=== PATIENT | female | born 1950 | race Caucasian/White ===

== ENCOUNTER → 2017-04-04 | Day surgery (SDC) | payer MEDICARE ==
[~2017-04-04] MED LIST: ACETAMINOPHEN/HYDROcodone 325 MG/5 MG TAB ONE; BUPIVACAINE/EPINEPHRINE 0.25% PF 30 ML VIAL INFIL ONE; KETOROLAC TROMETHAMINE 30 MG/ML (IVP) VIAL IV PUSH ONE; MEPERIDINE HCL 25 MG/ML VIAL ONE; MIDAZOLAM HCL 2 MG/2 ML VIAL ONE; ONDANSETRON HCL 4 MG/2 ML VIAL IV PUSH ONE; PROPOFOL 100 MG/10 ML INJ IV ONE; ceFAZolin INJ 1,000 MG VIAL ONE
--- NOTE | 2017-04-04 17:05 | TN ---
cc: CHET CARROLL MD DATE OF SURGERY: 04/04/2017 PREOPERATIVE DIAGNOSIS Right knee torn medial meniscus, possible lateral meniscus tear. POSTOPERATIVE DIAGNOSIS Right knee torn medial meniscus, torn lateral meniscus, chondromalacia medial femoral condyle. PROCEDURE Right knee arthroscopy, partial medial and lateral meniscectomy. PROCEDURE IN DETAIL Forceps obtained the patient taken up and placed in supine position on the hip was administered general anesthesia by Dr. Delcid of the Anesthesia Department tourniquet applied to the right thigh and right leg was prepped with Betadine soap followed by Betadine paint. Draping commenced with sterile down sheet sterile U drape, stockinette was applied to foot and calf. This was wrapped with [place] extremity drape was applied. The patient given gram of Ancef prior to initiation operative procedure. A time-out was held and confirmed. At that time the leg was elevated at table was elevated maximum height. The tourniquet inflated to 300 mmHg. The leg was allowed to flex over the side of the operating table. An 80 gauge spinal needle was placed region of the lateral patellar portal. This region. The 4 mL of 0.25% Marcaine with epinephrine. Infiltration also performed in the medial patellar portal and trans patellar tendon portal regions small incision was made region of the trans patellar tendon portal with 11-blade an inflow cannulas placed. The second incision was placed in the region of the medial patellar portal. The arthroscopic cannula was placed. Diagnostic arthroscopy commenced. The medial compartment examined. The anterior and more medial portion of the medial meniscus appeared intact. However as the leg was brought into abduction X rotation against the side post posterior portions of the meniscus were evaluated and a complex degenerative tear was seen posterior horn of the medial meniscus region in zone one a medial portal was established. This area was probed and then debrided with upbiting basket forceps and [place] meniscal shaver as the medial femoral condyle was examined. There was a large approximately quarter-sized area of full-thickness articular cartilage defect or grade 4 chondromalacia. There was some minor changes over the remainder of the medial femoral condyle, however, there was some debridement of the edges of this defect for some loose articular cartilage. At that time the scope was moved over the intercondylar notch edge of the lateral compartment the leg was flexed into figure four position, there was fraying at the free edge of the lateral meniscus seen, which had some complex components. This was debrided with a basket forceps and [place] meniscal shaver. There were all only minor chondromalacia changes noted on the lateral femoral condyle and tibial plateau popliteus tendon appeared normal. Popliteal hiatus was not violated. The undersurface patella was examined with the leg in extension. There were some mild chondromalacia changes as there were the trochlear groove. There were no pathologic plica was identified. Scope was placed back in the intercondylar notch anterior posterior cruciate ligaments were identified. These appeared normal. The scope was placed in the posterior medial and posterolateral compartment no loose bodies of abnormalities were seen in these regions. At that time the knee was thoroughly irrigated and suctioned all cannulas were removed. Each portal was closed with single 4-0 nylon interrupted stitch. Band-Aids, 4x4s, soft roll, Kali wrap were applied to the patient's knee. At that time the tourniquet was deflated. Total tourniquet time was 38 minutes. The patient thought procedure well was then taken to room in stable condition at the completion of procedure. The sponge and needle counts were correct. Estimated blood loss was less than 10 cc total. MD YAIR Shafer/reese /4:10 PM /5:01 PM
== END | disposition home or self-care (01) ==
LOC: ESDC 12:51
PROVIDERS: ATTEND Orthopaedic Surgery
DX: S83.231A Complex tear of medial meniscus, current injury, right knee, initial encounter (principal); S83.281A Other tear of lateral meniscus, current injury, right knee, initial encounter
CPT/HCPCS: 01400; 29880; J0690; J1885; J2175; J2250; J2405; J3010